=== PATIENT | male | born 1995 | race Hispanic/Latino ===

== ENCOUNTER 2022-06-27 10:59 | Emergency (ER) | payer SELFPAY ==
[~2022-06-27] VITALS: Ht 167.6 cm; Wt 72.6 kg
[2022-06-27] MEDS ORDERED: IBUPROFEN 600 MG TAB PO STA (11:06)
[2022-06-27] MEDS ORDERED: DEXAMETHASONE SOD PHOS 10 MG/1 ML VIAL IM ONE (11:15)
[2022-06-27] MEDS ORDERED: IBUPROFEN600 MG PO (13:04)
[2022-06-27] MEDS ORDERED: AMOX TR-K CLV1 EAC2 PO (13:04)
== END 2022-06-27 13:17 | disposition home or self-care (01) ==
LOC: ER 11:04
DX: J02.0 Streptococcal pharyngitis (principal)
CPT/HCPCS: 83518; 99284

== ENCOUNTER 2022-10-10 21:34 | Emergency (ER) | payer OTHER ==
[~2022-10-10] VITALS: Ht 167.6 cm; Wt 72.6 kg
[~2022-10-10 21:34] MED LIST: AMOX TR-K CLV1 EAC2 PO; IBUPROFEN600 MG PO
[2022-10-10 22:42] VITALS: O2SAT 99
[2022-10-10] MEDS ORDERED: IBUPROFEN 600 MG TAB PO STA (23:16)
[2022-10-10] MEDS ORDERED: ACETAMINOPHEN 325 MG TAB PO ONE (23:30)
[2022-10-11] MEDS ORDERED: NAPROSYN500 MG PO (01:05)
== END 2022-10-11 01:16 | disposition home or self-care (01) ==
LOC: EDBD 21:34 → ER 21:45
DX: S80.11XA Contusion of right lower leg, initial encounter (principal); S80.811A Abrasion, right lower leg, initial encounter; W20.8XXA Other cause of strike by thrown, projected or falling object, initial encounter; Y92.89 Other specified places as the place of occurrence of the external cause; F17.210 Nicotine dependence, cigarettes, uncomplicated
CPT/HCPCS: 99283

== ENCOUNTER 2023-08-20 16:22 | Emergency (ER) | payer SELFPAY ==
[~2023-08-20] VITALS: Ht 170.2 cm; Wt 72.6 kg
[~2023-08-20 16:22] MED LIST changes: +ACETAMINOPHEN 325 MG TAB ONE; +CEPHALEXIN500 MG PO; +NAPROSYN500 MG PO
[2023-08-20 17:13] LABS: BASOPHILS % 0.2 % (0.0-1.0); EOSINOPHILS # (AUTO) 0.1 (0.0-0.4); EOSINOPHILS % 1.1 % (0.0-6.0); HEMATOCRIT 49.2 % (38.2-49.6); HEMOGLOBIN 17.6 g/dL (14.0-18.0); LYMPHOCYTES # (AUTO) 3.5 (1.0-3.2); LYMPHOCYTES % 31.5 % (18.0-39.1); MEAN CORPUSCULAR HEMOGLOBIN 30.8 pg (28-32); MEAN CORPUSCULAR HGB CONC 35.8 g/dL (31-35); MEAN CORPUSCULAR VOLUME 86.2 fL (81-99); MONOCYTES # (AUTO) 0.8 (0.2-0.8); NEUTROPHILS # (AUTO) 6.6 (2.1-6.9); NEUTROPHILS % 59.9 % (38.7-80.0); PLATELET COUNT 249 x10e3/uL (140-360); RED BLOOD COUNT 5.71 x10e6/uL (4.3-5.7); RED CELL DISTRIBUTION WIDTH 12.9 % (11.7-14.4); WHITE BLOOD COUNT 10.94 x10e3/uL (4.8-10.8)
[2023-08-20 17:27] LABS: ALANINE AMINOTRANSFERASE 42 IU/L (0-55); ALBUMIN 4.3 g/dL (3.5-5.0); ALBUMIN/GLOBULIN RATIO 1.3 (0.8-2.0); ALKALINE PHOSPHATASE 118 IU/L (40-150); ANION GAP 14.7 mmol/L (8-16); BILIRUBIN,TOTAL 0.7 mg/dL (0.2-1.2); BLOOD UREA NITROGEN 10 mg/dL (7-26); BUN/CREATININE RATIO 11 (6-25); CALCIUM 9.5 mg/dL (8.4-10.2); CARBON DIOXIDE 26 mmol/L (22-29); CHLORIDE 105 mmol/L (98-107); CREATINE KINASE 101 IU/L (30-200); CREATININE, SERUM 0.89 mg/dL (0.72-1.25); EST GLOMERULAR FILTRATION RATE 118 ML/MIN (>=60); GLUCOSE 89 mg/dL (74-118); POTASSIUM 3.7 mmol/L (3.5-5.1); SODIUM 142 mmol/L (136-145); TOTAL PROTEIN 7.7 g/dL (6.5-8.1)
[2023-08-20 17:46] LABS: TROPONIN I < 0.05 ng/mL (0.0-0.40)
[2023-08-20] MEDS: ACETAMINOPHEN 325 MG TAB PO ONE (18:27)
[2023-08-20 18:28] VITALS: O2SAT 99
[2023-08-20] MEDS ORDERED: ACETAMINOPHEN 325 MG TAB ONE (18:28)
== END 2023-08-20 18:31 | disposition home or self-care (01) ==
LOC: ER 16:24
DX: R07.9 Chest pain, unspecified (principal)
CPT/HCPCS: 36415; 71045; 80053; 82550; 84484; 85025; 93005; 99284

== ENCOUNTER 2023-12-15 16:53 | Emergency (ER) | payer SELFPAY ==
[~2023-12-15] VITALS: Ht 170.2 cm; Wt 72.6 kg
[2023-12-15 16:53] VITALS: PULSE 102; RESP 18; TEMP 98.2; O2SAT 99
[~2023-12-15 16:53] MED LIST changes: -ACETAMINOPHEN 325 MG TAB ONE
[2023-12-15 17:20] LABS: BASOPHILS % 0.1 % (0.0-1.0); EOSINOPHILS # (AUTO) 0.2 (0.0-0.4); EOSINOPHILS % 1.4 % (0.0-6.0); HEMATOCRIT 47.2 % (38.2-49.6); LYMPHOCYTES % 38.6 % (18.0-39.1); MEAN CORPUSCULAR HEMOGLOBIN 30.5 pg (28-32); MEAN CORPUSCULAR HGB CONC 33.9 g/dL (31-35); MEAN CORPUSCULAR VOLUME 89.9 fL (81-99); MONOCYTES # (AUTO) 0.8 (0.2-0.8); MONOCYTES % 7.2 % (4.4-11.3); NEUTROPHILS # (AUTO) 5.4 (2.1-6.9); NEUTROPHILS % 52.4 % (38.7-80.0); PLATELET COUNT 250 x10e3/uL (140-360); RED BLOOD COUNT 5.25 x10e6/uL (4.3-5.7); RED CELL DISTRIBUTION WIDTH 12.8 % (11.7-14.4); WHITE BLOOD COUNT 10.38 x10e3/uL (4.8-10.8)
[2023-12-15] MEDS: Morphine 4mg INJECTION 4 MG/ML INJ IV ONE (17:22)
[2023-12-15] MEDS: ONDANSETRON HCL INJ 2MG/ML 2ML 2 MG/ML VIAL IV STA (17:22)
[2023-12-15] MEDS: SODIUM CHLORIDE 0.9% 1000ML 1,000 ML IV ONE (17:23)
[2023-12-15 17:38] LABS: ALBUMIN 4.1 g/dL (3.5-5.0); ALBUMIN/GLOBULIN RATIO 1.4 (0.8-2.0); ANION GAP 13.5 mmol/L (8-16); BILIRUBIN,TOTAL 0.5 mg/dL (0.2-1.2); CREATININE, SERUM 0.91 mg/dL (0.72-1.25); POTASSIUM 3.5 mmol/L (3.5-5.1); TOTAL PROTEIN 7.1 g/dL (6.5-8.1)
[2023-12-15] MEDS ORDERED: IOPAMIDOL 370 MG/ML 100 ML INFUS..BTL INJ ONE (17:58)
[2023-12-15 18:07] LABS: BILIRUBIN,URINE NEGATIVE (NEGATIVE); CLARITY,URINE SL CLOUDY (CLEAR); COLOR,URINE YELLOW (YELLOW); GLUCOSE, URINE NEGATIVE (NEGATIVE); KETONES,URINE NEGATIVE (NEGATIVE); LEUKOCYTE ESTERASE ,URINE NEGATIVE (NEGATIVE); NITRITE,URINE NEGATIVE (NEGATIVE); PH,URINE 7 (5 - 7); PROTEIN,URINE DIPSTICK TRACE (NEGATIVE); URINE UROBILINOGEN 0.2 mg/dL (0.2 - 1)
[2023-12-15 18:17] LABS: AMORPHOUS SEDIMENT,URINE FEW (FEW); BACTERIA,URINE RARE /HPF; EPITHELIAL CELLS,URINE FEW /LPF; RBC,URINE 0-5 /HPF (0-5)
[2023-12-15] MEDS ORDERED: MACROBID 100 M100 MG PO (18:52)
[2023-12-15] MEDS ORDERED: FLOMAX0.4 MG PO (18:52)
[2023-12-15] MEDS ORDERED: ONDANSETRON ODT4 MG SL (18:52)
[2023-12-15] MEDS ORDERED: KETOROLAC TROME10 MG PO (18:52)
== END 2023-12-15 19:17 | disposition home or self-care (01) ==
LOC: ER 17:10
DX: R10.31 Right lower quadrant pain (principal); N20.1 Calculus of ureter; R11.0 Nausea
CPT/HCPCS: 36415; 74177; 80053; 81001; 83690; 85025; 99284; J2270; J2405; J7030; Q9967